=== PATIENT | female | born 1985 | race Caucasian/White ===

== ENCOUNTER 2018-03-28 08:43 | Emergency (ER) | payer OTHER ==
[~2018-03-28] VITALS: Ht 172.7 cm; Wt 59.0 kg
[2018-03-28] MEDS ORDERED: FLEXERIL PO (10:25)
[2018-03-28] MEDS ORDERED: IBUPROFEN 800800 MG PO (10:25)
== END 2018-03-28 10:50 | disposition home or self-care (01) ==
LOC: ER 08:43
DX: S16.1XXA Strain of muscle, fascia and tendon at neck level, initial encounter (principal); S00.83XA Contusion of other part of head, initial encounter; V49.49XA Driver injured in collision with other motor vehicles in traffic accident, initial encounter; Y93.89 Activity, other specified; Y92.410 Unspecified street and highway as the place of occurrence of the external cause; Y99.8 Other external cause status